=== PATIENT | male | born 1945 | race Caucasian/White ===

== ENCOUNTER 2018-06-29 09:35 | Day surgery (SDC) | payer MEDICARE ==
[2018-06-26 11:21] LABS: HEMATOCRIT 44.9 % (42.0-54.0); HEMOGLOBIN 15.4 g/dL (13.5-17.5); MCH 30.6 pg (26.0-34.0); MCHC 34.3 g/dL (31.0-37.0); MCV 89.1 fL (80.0-100.0); MEAN PLATELET VOLUME 9.8 fL (7.4-10.4); RBC 5.04 10x6/uL (4.20-6.10); WBC 5.5 10x3/uL (4.8-10.8)
[~2018-06-29] VITALS: Ht 172.7 cm; Wt 72.7 kg
--- NOTE | ~2018-06-29 | OP ---
PATIENT NAME: CARLY ROBISON JR MEDICAL RECORD: [id number] :41 LOCATION:[facility] ADMISSION DATE: SURGEON: TIA JOHNSON MD DATE OF OPERATION: 06/29/2018 PREOPERATIVE DIAGNOSES: Large rotator cuff repair of the right shoulder with impingement syndrome, acromioclavicular arthritis. POSTOPERATIVE DIAGNOSES: Large rotator cuff repair of the right shoulder with impingement syndrome, acromioclavicular arthritis. PROCEDURE: Open rotator cuff repair with subacromial decompression, distal clavicle excision. SURGEON: Tia Johnson MD ANESTHESIA: General. INTRAOPERATIVE COMPLICATIONS: None. SUMMARY OF PATHOLOGIC FINDINGS: The patient was indeed found to have a large rotator cuff tear, which fortunately for this patient was repairable, although SCR components were in the room, they were not needed. OPERATIVE SUMMARY IN DETAIL: After obtaining the appropriate preoperative orthopedic surgery consent as well as anesthetic consultation, evaluation, and clearance, the patient was brought to the operating room and placed on the operating table in supine position. After general laryngeal mask airway was administered, the patient was placed in a beach chair position. All pressure points were well padded. He was held firmly to the operating table using the vacuum pack suction system. The patient's arm was then prepped and draped in routine sterile fashion. The arm was held in the [employer] arm holding device. Anterolateral incision was made from the acromioclavicular joint laterally across the distal aspect of the acromion and into the deltoid. Subperiosteal dissection was carried down around the anterior aspect of the deltoid. The patient was found to have a large acromion. A sagittal saw was then used to perform a formal acromioplasty at the level of acromioclavicular joint and the distal clavicle was excised for 1 cm. Having completed this, the rotator cuff was evaluated and after serial and sequential mobilization, it was felt that the rotator cuff could be nicely reapproximated back to the supraspinatus tendinous footprint. The supraspinatus tendinous footprint was taken back to bleeding cortical bone. First, approximation was then done with a double row PushLock system from [employer], creating a solid footprint. Both anterolateral and medial dog ears were then affixed serially and sequentially with 3 additional 7.5 SwiveLock from [employer] using mattress style sutures for reapproximation. Excellent reapproximation had thus been achieved with the supraspinatus tendon back to the supraspinatus tendinous footprint. Having completed this, the wound was copiously irrigated. Closure was inclusive of a [id number] style imbricated sutures to reapproximate the deltoid transosseously back to the acromion. Having completed this, the further fascia was closed with #1 Vicryl, 2-0 Vicryl, and the skin shade for final closure. Sterile dressings were applied. The patient was placed in abduction pillow shoulder immobilizer. The patient was then awakened and taken to recovery room in stable condition. All final needle and sponge counts were correct. 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
[2018-06-29] MEDS ORDERED: BAYER CHEWABLE81 MG PO (10:48)
[2018-06-29 11:03] VITALS: BP 157/80; Ht 172.7 cm; Wt 72.7 kg
[2018-06-29] MEDS ORDERED: DILAUDID2 MG PO (15:11)
== END 2018-06-29 17:35 | disposition home or self-care (01) ==
LOC: D.OPS 09:35
PROVIDERS: Anesthesiology
DX: M75.101 Unspecified rotator cuff tear or rupture of right shoulder, not specified as traumatic (principal); M75.41 Impingement syndrome of right shoulder; M13.811 Other specified arthritis, right shoulder; Z01.812 Encounter for preprocedural laboratory examination